=== PATIENT | male | born 1985 | race Caucasian/White ===

== ENCOUNTER → 2021-08-03 10:06 | Outpatient (CLI) | payer OTHER, SELFPAY ==
[2021-08-03 11:45] LABS: Cholesterol 155 mg/dL (140-199); Glucose 83 mg/dL (70-100); HDL Cholesterol 66 mg/dL (40-60); LDL Cholesterol Calculated 79 mg/dL (<100); Triglycerides 50 mg/dL (35-150)
[2021-08-03 13:03] LABS: Urine N gonorrhoeae NOT DETECTED
[2021-08-03 13:26] LABS: Urine Chlamydia NOT DETECTED
[2021-08-03 17:59] LABS: HIV 1 & 2 Ab/Ag 4th Gen Combo NEGATIVE (NEGATIVE)
[2021-08-04 07:19] LABS: Hepatitis B Core Antibody Negative (Negative)
== END ==
PROVIDERS: PCP Internal Medicine; Referring Provider Internal Medicine; Visit Provider Internal Medicine
DX: Z00.00 Encounter for general adult medical examination without abnormal findings (principal); Z20.9 Contact with and (suspected) exposure to unspecified communicable disease
CPT/HCPCS: 36415; 80061; 82947; 86704; 87389; 87491; 87591